=== PATIENT | male | born 1995 | race Caucasian/White ===

== ENCOUNTER 2016-09-13 15:14 | Emergency (ER) | payer OTHER ==
[2016-09-13 15:46] VITALS: BP 145/81
--- NOTE | 2016-09-13 16:07 | UC ---
General HPI - HPI Summary HPI Summary: complaint of many tick bites on his legs while he was jogging removed them within an hour since friday he is feeling more fatigued than usual intermittent headache both knees have been more painful runs 3-4 moles per day denies fever an chills denies nasal congestion,cough sore throat taken some aspirin for knee pain with some relief - History of Current Complaint Chief Complaint: [employer] Stated Complaint: TICK BITE Time Seen by Provider: 09/13/16 16:00 Hx Obtained From: Patient - Allergy/Home Medications Allergies/Adverse Reactions: Allergies Allergy/AdvReac Type Severity Reaction Status Date / Time Vancomycin Allergy Flushing Verified 09/13/16 15:41 PMH/Surg Hx/FS Hx/Imm Hx Previously Healthy: Yes - Surgical History Surgical History: Yes Surgery Procedure, Year, and Place: BACK SX--08/16/13. [facility]. back surgery to remove hardware 06/27/14. Left shoulder 2016 - Family History Known Family History: Negative: Cardiac Disease, Hypertension, Diabetes - Social History Occupation: Employed Full-time Lives: With Family Alcohol Use: Occasionally Alcohol Amount: 2 times a week Substance Use Type: None Smoking Status (MU): Never Smoked Tobacco - Immunization History Most Recent Influenza Vaccination: NONE Most Recent Tetanus Shot: UTD Most Recent Pneumonia Vaccination: N/A Review of Systems Constitutional: Fatigue Skin: Negative Eyes: Negative ENT: Negative Respiratory: Negative Cardiovascular: Negative Gastrointestinal: Negative Genitourinary: Negative Motor: Negative Neurovascular: Negative Musculoskeletal: Arthralgia Neurological: Headache Psychological: Negative All Other Systems Reviewed And Are Negative: Yes Physical Exam Triage Information Reviewed: Yes Appearance: No Pain Distress, Well-Nourished Vital Signs: Initial Vital Signs Temp 98 F 09/13/16 15:41 Pulse 68 09/13/16 15:41 Resp 16 09/13/16 15:41 BP 145/81 09/13/16 15:41 Pulse Ox 99 09/13/16 15:41 Vital Signs Reviewed: Yes Eyes: Positive: Conjunctiva Clear ENT: Positive: Pharynx normal, TMs normal Neck: Positive: No Lymphadenopathy Respiratory: Positive: Lungs clear, Normal breath sounds, No respiratory distress Cardiovascular: Positive: RRR, No Murmur, Pulses Normal Abdomen Description: Positive: Nontender, Soft Bowel Sounds: Positive: Present Musculoskeletal: Positive: ROM Intact, No Edema Neurological: Positive: Alert Psychological Exam: Normal Skin Exam: Normal Course/Dx - Course Course Of Treatment: exam completed. will test for lyme disease followup with PCP - Differential Dx - Multi-Symptom Provider Diagnoses: fatigue, bilateral knee pain, elevated blood pressure Discharge - Discharge Plan Condition: Stable Disposition: HOME Patient Education Materials: Fatigue (ED), Knee Pain (ED) Referrals: Tanesha Hall MD [Primary Care Provider] - Additional Instructions: You will be notified if any of your testing is positive Increase fluids and rest Take acetaminophen or ibuprofen for fever or pain Please review your discharge instructions. If your symptoms do not improve please call your primary care provider or return to urgent care. Your blood pressure is elevated. Please contact your primary care provider within 1 -4 weeks for further evaluation.
== END 2016-09-13 16:23 | disposition home or self-care (01) ==
LOC: UCCORT 15:14
DX: R53.83 Other fatigue (principal); M25.562 Pain in left knee; M25.561 Pain in right knee; R03.0 Elevated blood-pressure reading, without diagnosis of hypertension
CPT/HCPCS: 86618; 99211; G0463